=== PATIENT | male | born 1990 | race Two or more races ===

== ENCOUNTER 2024-05-14 10:49 | Inpatient (IN) | payer MEDICAID ==
[~2024-05-14] VITALS: Ht 177.8 cm; Wt 96.2 kg
[2024-05-14] MEDS ORDERED: ZOLPIDEM TARTRATE 10 MG TABLET PO PRN (11:15)
[2024-05-14] MEDS ORDERED: HALOPERIDOL 5 MG TABLET PO PRN (11:15)
[2024-05-14] MEDS ORDERED: OLAN10TA74 PO (15:23)
[2024-05-14] MEDS ORDERED: DIVA-112 PO (15:23)
[2024-05-14] MEDS ORDERED: PALI6TAB15 PO (15:23)
[2024-05-14] MEDS ORDERED: ARIP15TA27 PO (15:23)
[2024-05-14 15:46] LABS: COVID AG,FIA SOURCE NASAL SWAB
[2024-05-14 15:47] LABS: BASOPHILS % (AUTO) 0.3 % (0.0-2.0); EOSINOPHILS % (AUTO) 0 % (1.0-6.0); HEMOGLOBIN 15.2 g/dL (13.5-17.5); LYMPHOCYTES # (AUTO) 2.3 K/uL (1.0-4.8); LYMPHOCYTES % (AUTO) 28.6 % (22.0-44.0); MEAN CORPUSCULAR HEMOGLOBIN 30.4 pg (26.0-34.0); MEAN CORPUSCULAR HGB CONC 32.9 G/dL (31.0-37.0); MEAN CORPUSCULAR VOLUME 92 fL (80-100); MONOCYTES % (AUTO) 12.8 % (2.0-9.0); NEUTROPHILS # (AUTO) 4.6 K/uL (1.8-7.7); NEUTROPHILS % (AUTO) 58.3 % (40.0-70.0); PLATELET COUNT (AUTO) 305 K/uL (150-450); RED BLOOD CELL COUNT(AUTO) 4.99 MIL/uL (4.50-5.90); RED CELL DISTRIBUTION WIDTH 13.2 % (11.5-14.5)
[2024-05-14 15:57] LABS: ANION GAP 9 mmol/L (8-16); CALCIUM, TOTAL 8.9 mg/dL (8.8-10.5); CARBON DIOXIDE 29 mmol/L (22-29); CHLORIDE 100 mmol/L (98-107); CREATININE 1.31 mg/dL (0.60-1.30); GLOMERULAR FILTR. RATE CALC > 60 mL/min (>60); GLUCOSE,RANDOM 122 mg/dL (70-110); SODIUM SERUM 138 mmol/L (136-145); UREA NITROGEN, BLOOD 13 mg/dL (7-18)
[2024-05-14 16:01] LABS: ALCOHOL, BLOOD (SERUM) < 3 mg/dL (0-10)
[2024-05-14 16:02] LABS: SARS-COV2 (COVID) ANTIGEN,FIA Negative (Negative)
[2024-05-14] MEDS ORDERED: LORazepam 2 MG/ML VIAL ONE (16:24)
[2024-05-14] MEDS ORDERED: DiphenhydrAMINE HCL 50 MG/ML VIAL ONE (16:24)
[2024-05-14] MEDS ORDERED: HALOPERIDOL LACTATE 5 MG/ML VIAL ONE (16:24)
[2024-05-14] MEDS: DiphenhydrAMINE HCL 50 MG/ML VIAL IM ONE (16:32)
[2024-05-14] MEDS: HALOPERIDOL LACTATE 5 MG/ML VIAL IM ONE (16:32)
[2024-05-14] MEDS: LORazepam 2 MG/ML VIAL IM ONE (16:32)
[2024-05-14 21:30] VITALS: BP 138/73; PULSE 78; O2SAT 99
[2024-05-14 23:32] VITALS: RESP 18; TEMP 98
[2024-05-15 08:11] VITALS: RESP 17
[2024-05-15] MEDS ORDERED: ACETAMINOPHEN 325 MG TABLET PO PRN (09:30)
[2024-05-15] MEDS ORDERED: ALBUTEROL SULFATE HFA 90 MCG/PUFF 8 GM INHALER IH PRN (09:30)
[2024-05-15] MEDS ORDERED: CloNIDine HCL 0.1 MG TABLET PO PRN (09:30)
[2024-05-15] MEDS ORDERED: MAGNESIUM HYDROXIDE SUSPENSION 30 ML UDCUP PO PRN (09:30)
[2024-05-15] MEDS ORDERED: OMEPRAZOLE 20 MG CAPSULE PO PRN (09:30)
[2024-05-15] MEDS ORDERED: LOPERAMIDE HCL 2 MG CAPSULE PO PRN (09:30)
[2024-05-15] MEDS ORDERED: ONDANSETRON 4 MG TABLET PO PRN (09:30)
[2024-05-15] MEDS ORDERED: IBUPROFEN 600 MG TABLET PO PRN (09:30)
[2024-05-15] MEDS ORDERED: BENZOCAINE/MENTHOL LOZENGE PO PRN (09:30)
[2024-05-15] MEDS ORDERED: BACITRACIN 28 GM OINTMENT TP PRN (09:30)
[2024-05-15] MEDS ORDERED: PETROLATUM,WHITE 28 GM JELLY TP PRN (09:30)
[2024-05-15] MEDS ORDERED: DOCUSATE SODIUM 100 MG CAPSULE PO PRN (09:30)
[2024-05-15] MEDS ORDERED: MAG HYDROX/ALUMINUM HYD/SIMETH ES 30 ML SUSPENSION UDCUP PO PRN (09:30)
[2024-05-15] MEDS: LORazepam 2 MG/ML VIAL IM ONE (16:31)
[2024-05-15] MEDS: DiphenhydrAMINE HCL 50 MG/ML VIAL IM ONE (16:31)
[2024-05-15] MEDS: HALOPERIDOL LACTATE 5 MG/ML VIAL IM ONE (16:31)
[2024-05-15] MEDS: RisperiDONE 3 MG TABLET PO SCH (16:41)
[2024-05-15] MEDS: LITHIUM CARBONATE 300 MG CAPSULE PO SCH (16:41)
[2024-05-15] MEDS: DIVALPROEX SODIUM 500 MG DR TABLET PO SCH (16:41)
[2024-05-15 20:00] VITALS: RESP 16
[2024-05-16 08:17] VITALS: RESP 16
[2024-05-16 20:00] VITALS: RESP 16
[2024-05-16] MEDS: MELATONIN 5 MG TABLET PO SCH (21:00)
[2024-05-17 08:08] VITALS: RESP 17
[2024-05-17 21:00] VITALS: RESP 17; TEMP 98.1
[2024-05-18 08:06] VITALS: RESP 17
[2024-05-18] MEDS ORDERED: DiphenhydrAMINE HCL 50 MG/ML VIAL IM ONE (12:30)
[2024-05-18] MEDS ORDERED: HALOPERIDOL LACTATE 5 MG/ML VIAL IM ONE (12:30)
[2024-05-18] MEDS ORDERED: LORazepam 2 MG/ML VIAL IM ONE (12:30)
[2024-05-18] MEDS: LORazepam 2 MG TABLET PO PRN (17:01)
[2024-05-18] MEDS ORDERED: DiphenhydrAMINE HCL 50 MG/ML VIAL ONE (18:19)
[2024-05-18] MEDS ORDERED: LORazepam 2 MG/ML VIAL ONE (18:19)
[2024-05-18] MEDS ORDERED: HALOPERIDOL LACTATE 5 MG/ML VIAL ONE (18:20)
[2024-05-18] MEDS: HALOPERIDOL LACTATE 5 MG/ML VIAL IM ONE (19:45)
[2024-05-18] MEDS: DiphenhydrAMINE HCL 50 MG/ML VIAL IM ONE (19:45)
[2024-05-18] MEDS: LORazepam 2 MG/ML VIAL IM ONE (19:45)
[2024-05-18 23:46] VITALS: RESP 16
[2024-05-19 08:40] VITALS: RESP 16
[2024-05-19 20:00] VITALS: RESP 16
[2024-05-20 08:10] VITALS: RESP 16
[2024-05-21 20:07] VITALS: RESP 17
[2024-05-22 09:49] VITALS: RESP 18
[2024-05-22 20:14] VITALS: RESP 18
[2024-05-23] MEDS: DIVALPROEX SODIUM 500 MG DR TABLET PO ONE (20:22)
[2024-05-23] MEDS: RisperiDONE 3 MG TABLET PO ONE (20:22)
[2024-05-23] MEDS: LITHIUM CARBONATE 300 MG CAPSULE PO ONE (20:22)
[2024-05-23 21:22] VITALS: RESP 18
[2024-05-24] MEDS ORDERED: DiphenhydrAMINE HCL 50 MG/ML VIAL ONE (12:51)
[2024-05-24] MEDS ORDERED: LORazepam 2 MG/ML VIAL ONE (12:51)
[2024-05-24] MEDS: DiphenhydrAMINE HCL 50 MG/ML VIAL IM ONE (13:37)
[2024-05-24] MEDS: HALOPERIDOL LACTATE 5 MG/ML VIAL IM ONE (13:38)
[2024-05-24] MEDS: LORazepam 2 MG/ML VIAL IM ONE (13:38)
[2024-05-24] MEDS: HALOPERIDOL LACTATE 5 MG/ML VIAL IM PRN (23:21)
[2024-05-25 08:18] VITALS: RESP 18
[2024-05-26 00:31] VITALS: RESP 18
[2024-05-26 08:07] VITALS: RESP 18
[2024-05-27 08:06] VITALS: RESP 16
[2024-05-28 08:06] VITALS: RESP 18
[2024-05-28 20:21] VITALS: RESP 18
[2024-05-29] MEDS ORDERED: LORazepam 2 MG/ML VIAL ONE (01:39)
[2024-05-29] MEDS ORDERED: DiphenhydrAMINE HCL 50 MG/ML VIAL ONE (01:39)
[2024-05-29] MEDS: DiphenhydrAMINE HCL 50 MG/ML VIAL IM ONE (02:40)
[2024-05-29] MEDS: HALOPERIDOL LACTATE 5 MG/ML VIAL IM ONE (02:40)
[2024-05-29] MEDS: LORazepam 2 MG/ML VIAL IM ONE (02:40)
[2024-05-29] MEDS: RisperiDONE CONC 4 MG/4 ML SOLUTION ORAL.SYG PO SCH (08:49)
[2024-05-29] MEDS: LITHIUM CITRATE SOLUTION 8 MEQ/5 ML [8 MEQ = 300 MG] UDCUP PO SCH (08:49)
[2024-05-29] MEDS: VALPROIC ACID 250 MG/5 ML SOLUTION UDCUP PO SCH (08:50)
[2024-05-29 20:08] VITALS: RESP 18
[2024-05-31 20:29] VITALS: RESP 18
[2024-06-01 08:05] VITALS: RESP 17
[2024-06-02 08:27] VITALS: RESP 19
[2024-06-02 20:07] VITALS: RESP 18
[2024-06-03 08:31] VITALS: RESP 17
[2024-06-03] MEDS: QUEtiapine FUMARATE 200 MG TABLET PO SCH (16:23)
== END 2024-06-03 19:00 | disposition left against medical advice (07) | DRG 750 ==
LOC: EMS 10:49 → B3A 22:39
PROVIDERS: ADMIT Psychiatry & Neurology Psychiatry; ATTEND Psychiatry & Neurology Psychiatry
DX: F25.9 Schizoaffective disorder, unspecified (principal); E66.9 Obesity, unspecified; F41.9 Anxiety disorder, unspecified; G47.00 Insomnia, unspecified; F94.0 Selective mutism; K59.00 Constipation, unspecified; F31.9 Bipolar disorder, unspecified; Z20.822 Contact with and (suspected) exposure to COVID-19; F19.10 Other psychoactive substance abuse, uncomplicated; Z53.21 Procedure and treatment not carried out due to patient leaving prior to being seen by health care provider; K21.9 Gastro-esophageal reflux disease without esophagitis; Z68.30 Body mass index [BMI] 30.0-30.9, adult
CPT/HCPCS: 80048; 85025; 99285; G0480; J1200; J1630; J2060

== ENCOUNTER 2024-06-17 17:20 | Inpatient (IN) | payer MEDICAID ==
[~2024-06-17] VITALS: Ht 185.4 cm; Wt 104.5 kg
[~2024-06-17 17:20] MED LIST: ARIP15TA27 PO; DIVA-112 PO; OLAN10TA74 PO; PALI6TAB15 PO
[2024-06-17 21:42] VITALS: RESP 18
[2024-06-17] MEDS: HALOPERIDOL LACTATE 10 MG/5 ML SOLUTION UDCUP PO SCH (21:45)
[2024-06-18] MEDS ORDERED: PANTOPRAZOLE SODIUM 40 MG DR TABLET PO SCH (10:45)
[2024-06-18] MEDS: LEVOFLOXACIN 750 MG TABLET PO SCH (10:45)
[2024-06-18 10:51] VITALS: BP 147/88; PULSE 102; RESP 16; TEMP 97.3; O2SAT 96
[2024-06-18] MEDS ORDERED: MAGNESIUM HYDROXIDE SUSPENSION 30 ML UDCUP PO PRN (11:45)
[2024-06-18] MEDS ORDERED: DOCUSATE SODIUM 100 MG CAPSULE PO PRN (11:45)
[2024-06-18] MEDS ORDERED: OMEPRAZOLE 20 MG CAPSULE PO PRN (11:45)
[2024-06-18] MEDS ORDERED: ONDANSETRON 4 MG TABLET PO PRN (11:45)
[2024-06-18] MEDS ORDERED: ALBUTEROL SULFATE HFA 90 MCG/PUFF 8 GM INHALER IH PRN (11:45)
[2024-06-18] MEDS ORDERED: CloNIDine HCL 0.1 MG TABLET PO PRN (11:45)
[2024-06-18] MEDS ORDERED: PETROLATUM,WHITE 28 GM JELLY TP PRN (11:45)
[2024-06-18] MEDS ORDERED: BACITRACIN 28 GM OINTMENT TP PRN (11:45)
[2024-06-18] MEDS: SULFAMETHOX/TRIMETH DS 800-160 MG/TABLET PO SCH (12:58)
[2024-06-18 21:03] VITALS: RESP 18
[2024-06-19] MEDS: ZOLPIDEM TARTRATE 10 MG TABLET PO PRN (01:55)
[2024-06-19] MEDS: LOPERAMIDE HCL 2 MG CAPSULE PO PRN (08:12)
[2024-06-19] MEDS: LACTOBACILLUS ACIDOPHILUS/BULGARICUS GRANULES PACKET PO SCH (09:00)
[2024-06-19] MEDS: ETHYL ALCOHOL 62% ANTISEPTIC NASAL SANITIZER 0.6 ML AMPUL NASAL SCH (09:00)
[2024-06-19] MEDS: MULTIVITAMINS, THERAPEUTIC TABLET PO SCH (09:00)
[2024-06-19 09:14] VITALS: RESP 18
[2024-06-19] MEDS: ACETAMINOPHEN 325 MG TABLET PO PRN (12:29)
[2024-06-19 12:30] VITALS: RESP 18
[2024-06-19 20:45] VITALS: RESP 18
[2024-06-20 10:28] VITALS: RESP 19
[2024-06-20] MEDS: DiphenhydrAMINE HCL 50 MG/ML VIAL IM ONE (20:16)
[2024-06-20] MEDS: HALOPERIDOL LACTATE 5 MG/ML VIAL IM ONE (20:17)
[2024-06-20] MEDS: LORazepam 2 MG/ML VIAL IM ONE (20:17)
[2024-06-20 20:30] VITALS: RESP 18
[2024-06-21 08:16] VITALS: RESP 16; TEMP 96.9
[2024-06-21] MEDS: DiphenhydrAMINE HCL 25 MG CAPSULE PO ONE (18:40)
[2024-06-21] MEDS: LORazepam 2 MG TABLET PO PRN (18:40)
[2024-06-21] MEDS: DiphenhydrAMINE HCL 50 MG/ML VIAL IM ONE ×2 (18:44→19:10)
[2024-06-21] MEDS: LORazepam 2 MG/ML VIAL IM ONE ×2 (18:44→19:10)
[2024-06-21 21:54] VITALS: RESP 18
[2024-06-22 08:30] VITALS: RESP 17
[2024-06-22 20:11] VITALS: BP 122/85; PULSE 96; RESP 18; TEMP 97.4; O2SAT 97
[2024-06-24 08:45] VITALS: BP 117/56; PULSE 83; RESP 18; TEMP 98.6; O2SAT 95
[2024-06-24 19:55] VITALS: RESP 18
[2024-06-24 20:05] VITALS: RESP 18
[2024-06-25 10:50] VITALS: RESP 18
[2024-06-25 22:36] VITALS: RESP 18
[2024-06-26 08:42] VITALS: RESP 19
[2024-06-26 20:34] VITALS: BP 119/96; PULSE 78; RESP 18; TEMP 97.1; O2SAT 96
[2024-06-27 14:45] VITALS: RESP 18
[2024-06-27 20:41] VITALS: RESP 18
[2024-06-28 10:55] VITALS: RESP 19; TEMP 97
[2024-06-29 08:22] VITALS: BP 125/72; PULSE 82; RESP 20; TEMP 97.8; O2SAT 100
[2024-06-29] MEDS: BENZOCAINE/MENTHOL [CEPACOL] LOZENGE PO ONE (16:21)
[2024-06-30 11:20] VITALS: BP 133/104; PULSE 73; RESP 18; TEMP 97.6; O2SAT 98
[2024-06-30] MEDS ORDERED: HALOPERIDOL DECANOATE 100 MG/ML VIAL IM SCH (15:45)
[2024-06-30 20:27] VITALS: RESP 18
[2024-07-01 08:47] VITALS: RESP 18; TEMP 99.1
[2024-07-01] MEDS: HALOPERIDOL DECANOATE 100 MG/ML VIAL IM SCH (09:00)
[2024-07-01 21:18] VITALS: RESP 18
[2024-07-02] MEDS ORDERED: HALOPERIDOL LACTATE 5 MG/ML VIAL ONE (09:33)
[2024-07-02] MEDS: LORazepam 2 MG/ML VIAL IM ONE (10:12)
[2024-07-02] MEDS: DiphenhydrAMINE HCL 50 MG/ML VIAL IM ONE (10:15)
[2024-07-02] MEDS: HALOPERIDOL LACTATE 5 MG/ML VIAL IM ONE (10:15)
[2024-07-02 10:37] VITALS: RESP 17
[2024-07-02 20:02] VITALS: RESP 18
[2024-07-02] MEDS: HALOPERIDOL 5 MG TABLET PO PRN (23:01)
[2024-07-03 16:44] VITALS: RESP 18
[2024-07-03 20:16] VITALS: RESP 18
[2024-07-03] MEDS: HALOPERIDOL LACTATE 5 MG/ML VIAL IM ONE (22:56)
[2024-07-03] MEDS: DiphenhydrAMINE HCL 50 MG/ML VIAL IM ONE (23:00)
[2024-07-03] MEDS: LORazepam 2 MG/ML VIAL IM ONE (23:00)
[2024-07-04 08:49] VITALS: RESP 18
[2024-07-04 15:27] VITALS: RESP 18
[2024-07-04] MEDS: IBUPROFEN 600 MG TABLET PO PRN (15:27)
[2024-07-04 16:27] VITALS: RESP 18
[2024-07-04 20:05] VITALS: RESP 18
[2024-07-05] MEDS: MAG HYDROX/ALUMINUM HYD/SIMETH ES 30 ML SUSPENSION UDCUP PO PRN (05:56)
[2024-07-05 09:02] VITALS: RESP 18
[2024-07-05 20:03] VITALS: RESP 18
[2024-07-06 08:43] VITALS: BP 159/100; PULSE 102; RESP 18; TEMP 97.5; O2SAT 100
[2024-07-07 08:22] VITALS: BP 119/71; PULSE 104; RESP 18; TEMP 97.5; O2SAT 99
[2024-07-07 16:48] VITALS: BP 118/70; PULSE 101; RESP 17; TEMP 97.4; O2SAT 99
[2024-07-07 17:48] VITALS: BP 120/78; PULSE 98; RESP 18; TEMP 97; O2SAT 97
[2024-07-07 20:06] VITALS: RESP 18
[2024-07-08] MEDS: DiphenhydrAMINE HCL 50 MG/ML VIAL IM ONE (02:33)
[2024-07-08 08:26] VITALS: RESP 18
[2024-07-08 21:42] VITALS: RESP 18
[2024-07-09] MEDS: DiphenhydrAMINE HCL 50 MG/ML VIAL IM ONE (02:03)
[2024-07-09 10:18] VITALS: RESP 19
[2024-07-09 20:14] VITALS: RESP 18
[2024-07-09] MEDS: LORATADINE 10 MG TABLET PO SCH (20:55)
[2024-07-09] MEDS: OLANZapine 10 MG RAPDIS TABLET PO SCH (20:55)
[2024-07-09] MEDS: DiphenhydrAMINE HCL 25 MG CAPSULE PO PRN (21:20)
[2024-07-10 08:32] VITALS: RESP 17
[2024-07-10 20:02] VITALS: RESP 18
[2024-07-11 08:50] VITALS: RESP 17
[2024-07-11 20:11] VITALS: BP 120/97; PULSE 80; RESP 18; TEMP 98; O2SAT 97
[2024-07-12 08:35] VITALS: RESP 18
[2024-07-12 20:00] VITALS: BP 130/81; PULSE 110; RESP 20; TEMP 98; O2SAT 97
[2024-07-13 10:05] VITALS: RESP 17
[2024-07-13 21:04] VITALS: RESP 18
[2024-07-14 09:00] VITALS: RESP 17
[2024-07-14 21:23] VITALS: BP 134/92; PULSE 96; RESP 18; TEMP 98; O2SAT 97
[2024-07-15 09:43] VITALS: BP 120/74; PULSE 60; RESP 19; TEMP 98; O2SAT 97
[2024-07-15 20:20] VITALS: RESP 18
[2024-07-15 20:50] VITALS: BP 124/77; RESP 18
[2024-07-15 22:03] VITALS: RESP 18
[2024-07-16 08:05] VITALS: RESP 19
[2024-07-16 20:36] VITALS: BP 104/72; PULSE 77; RESP 18; TEMP 97.2; O2SAT 100
[2024-07-17 08:55] VITALS: RESP 17
[2024-07-17 12:38] LABS: BASOPHILS % (AUTO) 0.3 % (0.0-2.0); EOSINOPHILS % (AUTO) 0.1 % (1.0-6.0); HEMATOCRIT 45.5 % (41-53); HEMOGLOBIN 15.3 g/dL (13.5-17.5); LYMPHOCYTES # (AUTO) 2.6 K/uL (1.0-4.8); LYMPHOCYTES % (AUTO) 40.9 % (22.0-44.0); MEAN CORPUSCULAR HEMOGLOBIN 30.8 pg (26.0-34.0); MEAN CORPUSCULAR HGB CONC 33.5 G/dL (31.0-37.0); MEAN CORPUSCULAR VOLUME 92 fL (80-100); MONOCYTES # (AUTO) 0.5 K/uL (0.1-1.0); MONOCYTES % (AUTO) 8.5 % (2.0-9.0); NEUTROPHILS # (AUTO) 3.2 K/uL (1.8-7.7); NEUTROPHILS % (AUTO) 50.2 % (40.0-70.0); PLATELET COUNT (AUTO) 276 K/uL (150-450); RED BLOOD CELL COUNT(AUTO) 4.95 MIL/uL (4.50-5.90); RED CELL DISTRIBUTION WIDTH 14.2 % (11.5-14.5); WHITE BLOOD COUNT (AUTO) 6.3 K/uL (4.5-11.0)
[2024-07-17 13:01] LABS: ALANINE AMINOTRANSFERASE 210 U/L (12-78); ALBUMIN 3.6 g/dL (3.4-5.0); ALKALINE PHOSPHATASE 143 U/L (46-116); ANION GAP 5 mmol/L (8-16); ASPARTATE AMINOTRANSFERASE 66 U/L (15-37); BILIRUBIN,TOTAL 0.4 mg/dL (0.1-1.0); CALCIUM, TOTAL 9.1 mg/dL (8.8-10.5); CARBON DIOXIDE 30 mmol/L (22-29); CHLORIDE 101 mmol/L (98-107); CREATININE 0.92 mg/dL (0.60-1.30); GLOMERULAR FILTR. RATE CALC > 60 mL/min (>60); GLUCOSE,RANDOM 124 mg/dL (70-110); POTASSIUM 4.2 mmol/L (3.5-5.1); SODIUM SERUM 136 mmol/L (136-145); TOTAL PROTEIN, SERUM 7.2 g/dL (6.4-8.2); UREA NITROGEN, BLOOD 13 mg/dL (7-18)
[2024-07-17] MEDS: BENZOCAINE/MENTHOL [CEPACOL] LOZENGE PO PRN (15:18)
[2024-07-17 20:08] VITALS: BP 129/75; PULSE 120; RESP 18; TEMP 97.7; O2SAT 100
[2024-07-18 18:41] VITALS: RESP 18
[2024-07-19 10:05] VITALS: BP 123/67; PULSE 97; RESP 18; TEMP 97; O2SAT 99
[2024-07-19 20:10] VITALS: RESP 18
[2024-07-20 08:42] VITALS: RESP 18
[2024-07-20 21:23] VITALS: RESP 18; TEMP 97.8
[2024-07-21 09:00] VITALS: RESP 18
[2024-07-21 20:38] VITALS: RESP 18
[2024-07-22 11:00] VITALS: RESP 19
[2024-07-23 20:35] VITALS: BP 122/78; PULSE 102; RESP 18; TEMP 97.6; O2SAT 96
[2024-07-24 08:29] VITALS: RESP 17; TEMP 98
[2024-07-24 20:02] VITALS: BP 134/67; PULSE 103; RESP 16; TEMP 98.4; O2SAT 97
[2024-07-25 09:52] VITALS: RESP 18
[2024-07-25 21:56] VITALS: RESP 18
[2024-07-26 18:37] VITALS: BP 128/83; PULSE 111; RESP 18; TEMP 98.1; O2SAT 95
[2024-07-27 08:57] VITALS: RESP 19; TEMP 97.8
[2024-07-27 20:31] VITALS: TEMP 97
[2024-07-28 20:09] VITALS: BP 134/100; PULSE 90; RESP 18; TEMP 97.9; O2SAT 95
[2024-07-29 09:00] VITALS: RESP 18
[2024-07-29 20:19] VITALS: RESP 18
[2024-07-30 11:11] VITALS: BP 128/89; PULSE 89; RESP 18; TEMP 98; O2SAT 96
[2024-07-30 20:34] VITALS: BP 131/77; PULSE 107; RESP 18; TEMP 98; O2SAT 99
[2024-07-31] MEDS: INFLUENZA VIRUS VACCINE TVS (6MO+) 2024-25/PF 45 MCG/0.5 ML SYRINGE IM. ONE (11:30)
[2024-07-31 18:26] VITALS: BP 125/70; PULSE 85; RESP 18; TEMP 97.6; O2SAT 99
[2024-07-31 20:26] VITALS: BP 145/98; PULSE 104; RESP 18; TEMP 98.3; O2SAT 95
[2024-08-01 10:16] VITALS: RESP 18
[2024-08-01 20:12] VITALS: RESP 18
[2024-08-02 10:23] VITALS: RESP 18
[2024-08-02 21:46] VITALS: RESP 18
[2024-08-03 09:55] VITALS: RESP 16
[2024-08-03 21:09] VITALS: BP 114/71; PULSE 88; RESP 18; TEMP 98.7; O2SAT 96
[2024-08-04 20:06] VITALS: BP 116/85; PULSE 90; RESP 18; TEMP 98.1; O2SAT 96
[2024-08-05 08:15] VITALS: RESP 19; TEMP 97.6
[2024-08-05 21:30] VITALS: BP 130/78; PULSE 98; RESP 18; TEMP 97.5; O2SAT 99
[2024-08-06 09:55] VITALS: RESP 18
[2024-08-06 20:02] VITALS: BP 121/78; PULSE 109; RESP 16; TEMP 99.4; O2SAT 98
[2024-08-07 11:08] VITALS: RESP 18
[2024-08-07 20:00] VITALS: BP 146/88; PULSE 81; RESP 19; TEMP 97.6
[2024-08-08 10:21] VITALS: RESP 18
[2024-08-08 20:34] VITALS: BP 119/75; PULSE 115; RESP 18; TEMP 97.8; O2SAT 95
[2024-08-09 10:26] VITALS: RESP 18
[2024-08-09 20:45] VITALS: BP 127/79; PULSE 112; RESP 18; O2SAT 97
[2024-08-10 09:32] VITALS: RESP 18
[2024-08-10 21:07] VITALS: BP 131/80; PULSE 105; RESP 18; TEMP 97.8; O2SAT 96
[2024-08-11 09:56] VITALS: RESP 18
[2024-08-11 20:43] VITALS: BP 121/82; PULSE 108; RESP 18; TEMP 97.8; O2SAT 98
[2024-08-12 09:07] VITALS: RESP 18
[2024-08-12 20:29] VITALS: BP 134/90; PULSE 88; RESP 18; TEMP 97.7; O2SAT 96
[2024-08-13 08:43] VITALS: RESP 20
[2024-08-13 20:00] VITALS: BP 135/101; PULSE 110; RESP 18; TEMP 98; O2SAT 97
[2024-08-14 10:31] VITALS: RESP 18
[2024-08-14 20:57] VITALS: BP 132/75; PULSE 82; RESP 18; TEMP 98.2; O2SAT 97
[2024-08-15 11:56] VITALS: RESP 18
[2024-08-15 20:54] VITALS: RESP 18
[2024-08-16 08:45] VITALS: RESP 18
[2024-08-16 20:56] VITALS: RESP 19; TEMP 97.6
[2024-08-17 15:29] VITALS: BP 119/77; PULSE 108; RESP 18; TEMP 97.3; O2SAT 97
[2024-08-17 20:01] VITALS: BP 134/85; PULSE 96; RESP 18; TEMP 97.5; O2SAT 96
[2024-08-18 19:01] VITALS: BP 132/72; PULSE 95; RESP 18; TEMP 97.8; O2SAT 97
[2024-08-18 21:03] VITALS: BP 145/95; PULSE 96; RESP 19; TEMP 97.9; O2SAT 96
[2024-08-19 11:17] VITALS: RESP 17; TEMP 96.9
[2024-08-19 20:42] VITALS: BP 135/80; PULSE 92; RESP 18; TEMP 98.1; O2SAT 95
[2024-08-20 21:12] VITALS: RESP 18
[2024-08-21 12:09] VITALS: RESP 18
[2024-08-21 20:31] VITALS: BP 131/79; PULSE 96; RESP 19; TEMP 97.7; O2SAT 97
[2024-08-22 14:32] VITALS: RESP 18
[2024-08-22 20:29] VITALS: RESP 19
[2024-08-23 12:48] VITALS: RESP 18
[2024-08-23 22:03] VITALS: RESP 18
[2024-08-24 08:27] VITALS: RESP 18
[2024-08-24 20:01] VITALS: BP 123/87; PULSE 105; RESP 18; TEMP 97.4; O2SAT 96
[2024-08-25 09:07] VITALS: RESP 18
[2024-08-25 20:00] VITALS: BP 128/90; PULSE 102; RESP 18; TEMP 97.6; O2SAT 97
[2024-08-26 08:00] VITALS: BP 117/72; PULSE 92; RESP 17; TEMP 97.1; O2SAT 97
[2024-08-26 20:19] VITALS: BP 124/82; PULSE 72; RESP 18; TEMP 97.3; O2SAT 96
[2024-08-27 14:33] VITALS: RESP 17
[2024-08-27 20:05] VITALS: RESP 18; RESP 19; TEMP 97.6
[2024-08-28 21:07] VITALS: RESP 18
[2024-08-29 08:26] VITALS: RESP 18
[2024-08-29 20:21] VITALS: BP 131/85; PULSE 100; RESP 18; TEMP 98.2
[2024-08-30 14:17] VITALS: RESP 18
[2024-08-30 21:19] VITALS: BP 137/79; PULSE 99; RESP 18; TEMP 97.8
[2024-08-31 13:02] VITALS: RESP 17
[2024-08-31 20:02] VITALS: BP 115/77; PULSE 100; RESP 18; TEMP 97.9; O2SAT 95
[2024-09-01 11:09] VITALS: BP 133/94; PULSE 86; RESP 16; TEMP 97.9; O2SAT 96
[2024-09-01 20:00] VITALS: BP 149/79; PULSE 98; RESP 18; TEMP 96.8; O2SAT 98
[2024-09-02 08:09] VITALS: BP 118/68; PULSE 106; RESP 17; TEMP 98.1; O2SAT 95
[2024-09-02 20:04] VITALS: BP 158/87; PULSE 105; RESP 18; TEMP 97.8; O2SAT 98
[2024-09-03 08:28] VITALS: BP 130/85; PULSE 96; RESP 16; TEMP 97.8; O2SAT 96
[2024-09-03 20:03] VITALS: BP 129/91; PULSE 96; RESP 20; TEMP 97.7; O2SAT 96
[2024-09-03] MEDS: PALIPERIDONE 3 MG ER TABLET PO SCH (20:09)
[2024-09-04 08:38] VITALS: BP 118/85; PULSE 96; RESP 18; TEMP 97.7; O2SAT 99
[2024-09-04 23:03] VITALS: BP 137/98; PULSE 86; RESP 18; TEMP 97.9; O2SAT 97
[2024-09-05 08:59] VITALS: BP 130/80; PULSE 96; RESP 18; TEMP 98; O2SAT 99
[2024-09-05 21:55] VITALS: BP 140/87; PULSE 99; RESP 18; TEMP 97.1; O2SAT 100
[2024-09-05 22:02] VITALS: BP 140/87; PULSE 100; RESP 18; TEMP 97.1; O2SAT 100
[2024-09-06] MEDS: PALIPERIDONE PALMITATE 234 MG/1.5 ML SYRINGE IM SCH (11:36)
[2024-09-06 15:25] VITALS: BP 136/88; PULSE 88; RESP 17; TEMP 97.8; O2SAT 98
[2024-09-06 20:00] VITALS: BP 125/76; PULSE 93; RESP 19; TEMP 98; O2SAT 98
[2024-09-07 11:34] VITALS: BP 129/83; PULSE 96; RESP 18; TEMP 98.2; O2SAT 99
[2024-09-07 20:28] VITALS: BP 113/85; PULSE 96; RESP 18; TEMP 97.3; O2SAT 96
[2024-09-08 10:47] VITALS: BP 130/83; PULSE 87; RESP 17; TEMP 97.9; O2SAT 96
[2024-09-08 20:29] VITALS: BP 127/80; PULSE 112; RESP 18; TEMP 97.6; O2SAT 96
[2024-09-08] MEDS: OLANZapine 10 MG RAPDIS TABLET PO SCH (21:00)
[2024-09-09 21:20] VITALS: BP 126/76; PULSE 95; RESP 18; TEMP 98.1; O2SAT 99
[2024-09-10 18:13] VITALS: BP 122/78; PULSE 95; RESP 18; TEMP 97.7; O2SAT 96
[2024-09-10 20:53] VITALS: BP 121/71; PULSE 92; RESP 18; TEMP 98.8; O2SAT 96
[2024-09-11 09:52] VITALS: RESP 18
[2024-09-11 23:20] VITALS: BP 124/73; PULSE 89; RESP 18; TEMP 97.5; O2SAT 95
[2024-09-12 16:37] VITALS: RESP 18; TEMP 98; O2SAT 99
[2024-09-12 21:49] VITALS: BP 132/82; PULSE 95; RESP 18; TEMP 97.3
[2024-09-13 15:03] VITALS: RESP 16
[2024-09-13 21:10] VITALS: BP 124/76; PULSE 89; RESP 18; TEMP 97.8; O2SAT 95
[2024-09-14 10:00] VITALS: BP 125/86; PULSE 86; RESP 16; TEMP 97.2; O2SAT 97
[2024-09-14 20:58] VITALS: BP 121/79; PULSE 97; RESP 18; TEMP 97.8; O2SAT 99
[2024-09-15 10:17] VITALS: RESP 18
[2024-09-15 21:13] VITALS: BP 126/73; PULSE 76; RESP 18; TEMP 98.2
[2024-09-16 09:00] VITALS: RESP 18
[2024-09-16 20:27] VITALS: BP 120/72; PULSE 90; RESP 18; TEMP 98.2; O2SAT 97
[2024-09-17 08:16] VITALS: RESP 18
[2024-09-17 21:31] VITALS: BP 117/64; PULSE 80; RESP 18; TEMP 98; O2SAT 95
[2024-09-18 09:00] VITALS: BP 110/59; PULSE 64; RESP 18; TEMP 97.6; O2SAT 97
[2024-09-18 20:21] VITALS: BP 113/72; PULSE 68; RESP 18; TEMP 97.1; O2SAT 98
[2024-09-19 11:09] VITALS: BP 125/78; PULSE 95; RESP 18; TEMP 98.2; O2SAT 98
[2024-09-19 20:31] VITALS: BP 122/72; PULSE 83; RESP 18; TEMP 98.7; O2SAT 98
[2024-09-20 18:43] VITALS: BP 133/85; PULSE 81; RESP 18; TEMP 98; O2SAT 98
[2024-09-20 21:41] VITALS: BP 125/73; PULSE 81; RESP 18; TEMP 98.8; O2SAT 95
[2024-09-21 09:04] VITALS: BP 111/63; PULSE 86; RESP 16; TEMP 96.7; O2SAT 98
[2024-09-21 22:19] VITALS: BP 128/78; PULSE 88; RESP 18; TEMP 98; O2SAT 97
[2024-09-22 09:01] VITALS: RESP 18
[2024-09-22 21:27] VITALS: BP 119/72; PULSE 70; RESP 18; TEMP 98.1; O2SAT 96
[2024-09-23 10:20] VITALS: RESP 16
[2024-09-23 21:37] VITALS: BP 109/69; PULSE 81; RESP 18; TEMP 98.9; O2SAT 95
[2024-09-24 09:21] VITALS: BP 120/65; PULSE 79; RESP 18; TEMP 97.9; O2SAT 97
[2024-09-24 20:00] VITALS: BP 110/65; PULSE 77; RESP 18; TEMP 98.8; O2SAT 95
[2024-09-25 08:00] VITALS: RESP 17
[2024-09-25 22:04] VITALS: BP 121/78; PULSE 85; RESP 18; TEMP 98; O2SAT 98
[2024-09-26 21:46] VITALS: BP 108/61; PULSE 75; RESP 18; TEMP 97.7; O2SAT 95
[2024-09-27 10:33] VITALS: RESP 17
[2024-09-27 22:28] VITALS: BP 147/95; PULSE 91; RESP 18; TEMP 97; O2SAT 95
[2024-09-28 09:39] VITALS: BP 116/73; PULSE 59; RESP 16; TEMP 96.5; O2SAT 98
[2024-09-28 21:48] VITALS: BP 140/83; PULSE 77; RESP 18; TEMP 97.5; O2SAT 95
[2024-09-29 10:48] VITALS: RESP 18
[2024-09-29 21:48] VITALS: BP 123/76; PULSE 80; RESP 18; TEMP 97.5; O2SAT 96
[2024-09-30 21:45] VITALS: BP 113/69; PULSE 82; RESP 18; TEMP 98.2; O2SAT 98
[2024-10-01 20:15] VITALS: BP 135/78; PULSE 86; RESP 16; TEMP 97.4; O2SAT 98
[2024-10-02 08:00] VITALS: BP 126/74; PULSE 81; RESP 18; TEMP 97; O2SAT 95
[2024-10-02 21:32] VITALS: BP 133/75; PULSE 87; RESP 19; TEMP 97.4; O2SAT 95
[2024-10-03 13:49] VITALS: BP 118/79; PULSE 81; RESP 18; TEMP 98.8; O2SAT 97
[2024-10-03 21:30] VITALS: BP 118/74; PULSE 84; RESP 18; TEMP 98.9; O2SAT 97
[2024-10-04 10:24] VITALS: BP 140/97; PULSE 65; RESP 19; TEMP 97.6; O2SAT 96
[2024-10-04 15:14] VITALS: BP 112/62; PULSE 100; RESP 20; TEMP 98.2; O2SAT 98
[2024-10-04 20:00] VITALS: BP 145/80; PULSE 95; RESP 18; TEMP 97; O2SAT 97
[2024-10-04 23:01] VITALS: BP 145/96; PULSE 99; RESP 18; TEMP 97; O2SAT 100
[2024-10-05 09:43] VITALS: BP 126/61; PULSE 81; RESP 18; TEMP 98.6; O2SAT 97
[2024-10-05 22:11] VITALS: BP 122/83; PULSE 78; RESP 18; TEMP 97.4; O2SAT 96
[2024-10-06 09:30] VITALS: BP 138/76; PULSE 80; RESP 18; TEMP 97.4
[2024-10-06 23:43] VITALS: RESP 18
[2024-10-07 11:12] VITALS: BP 158/92; PULSE 63; RESP 19; TEMP 97.5; O2SAT 99
[2024-10-07 21:39] VITALS: BP 139/84; PULSE 106; RESP 18; TEMP 97.3; O2SAT 96
[2024-10-08 09:00] VITALS: BP 134/79; PULSE 86; RESP 17; TEMP 97.6; O2SAT 98
[2024-10-08 20:42] VITALS: BP 141/83; PULSE 97; RESP 18; TEMP 98.6; O2SAT 98
[2024-10-09 08:42] VITALS: BP 108/64; PULSE 72; RESP 18; TEMP 97.6; O2SAT 98
[2024-10-09 21:50] VITALS: BP 121/79; PULSE 73; RESP 18; TEMP 97.5; O2SAT 98
[2024-10-10 08:00] VITALS: BP 153/97; PULSE 93; RESP 18; TEMP 98.4; O2SAT 96
[2024-10-10 20:00] VITALS: BP 134/80; PULSE 95; RESP 18; TEMP 97; O2SAT 97
[2024-10-11 08:00] VITALS: BP 134/94; PULSE 91; RESP 18; TEMP 97.5; O2SAT 97
[2024-10-11 21:56] VITALS: BP 118/84; PULSE 91; RESP 18; TEMP 98; O2SAT 98
[2024-10-12 09:49] VITALS: BP 117/73; PULSE 104; RESP 18; TEMP 97.6; O2SAT 95
[2024-10-12 20:28] VITALS: BP 130/61; PULSE 71; RESP 16; TEMP 97.8; O2SAT 99
[2024-10-13 08:30] VITALS: RESP 18
[2024-10-13 21:20] VITALS: BP 135/79; PULSE 78; RESP 19; TEMP 97.8; O2SAT 100
[2024-10-14 09:58] VITALS: BP 139/61; PULSE 102; RESP 18; TEMP 97.1; O2SAT 99
[2024-10-14] MEDS: PALIPERIDONE 6 MG ER TABLET PO SCH (20:55)
[2024-10-14 22:02] VITALS: BP 140/99; PULSE 77; RESP 18; TEMP 98.5; O2SAT 96
[2024-10-15 08:43] VITALS: BP 123/77; PULSE 100; RESP 17; O2SAT 95
[2024-10-15] MEDS: TUBERCULIN, PURIFIED PROTEIN DERIVATIVE 5 TU/0.1 ML SYRINGE ID ONE ×2 (16:25→18:19)
[2024-10-15 21:40] VITALS: BP 136/86; PULSE 109; RESP 18; O2SAT 98
[2024-10-16 08:23] VITALS: BP 148/102; PULSE 114; RESP 17; O2SAT 97
[2024-10-16 21:00] VITALS: BP 150/100; PULSE 18; RESP 20; TEMP 97.7; O2SAT 97
[2024-10-17 20:28] VITALS: BP 123/92; PULSE 18; RESP 18; TEMP 98.4; O2SAT 97
[2024-10-17 20:29] VITALS: BP 123/92; PULSE 110; RESP 18; TEMP 98.4; O2SAT 97
[2024-10-17 23:30] VITALS: BP 126/88; PULSE 88; RESP 18; TEMP 98.4; O2SAT 98
[2024-10-18 09:33] VITALS: BP 125/81; PULSE 91; RESP 18; TEMP 98; O2SAT 96
[2024-10-18 09:44] VITALS: BP 125/81; PULSE 91; RESP 18; TEMP 98; O2SAT 96
[2024-10-18 23:10] VITALS: RESP 18
[2024-10-19 08:45] VITALS: BP 123/77; PULSE 89; TEMP 97; O2SAT 97
[2024-10-19 21:12] VITALS: RESP 18
[2024-10-20 10:10] VITALS: RESP 18
[2024-10-20 22:25] VITALS: RESP 18
[2024-10-21] MEDS ORDERED: PALI234D IM (08:05)
[2024-10-21] MEDS ORDERED: PALI6TAB15 PO (08:05)
[2024-10-21] MEDS ORDERED: MULT-14 PO (08:05)
[2024-10-21 09:52] VITALS: BP 139/83; PULSE 81; RESP 18; TEMP 98.8; O2SAT 99
[2024-10-21 11:15] LABS: COVID AG,FIA SOURCE NASAL SWAB
[2024-10-21 16:24] LABS: SARS-COV2 (COVID) ANTIGEN,FIA Negative (Negative)
== END 2024-10-21 14:45 | DRG 750 ==
LOC: 3EC 21:30 → 3EI 09-04 15:50
PROVIDERS: ADMIT Psychiatry & Neurology Psychiatry; ATTEND Psychiatry & Neurology Psychiatry
PROC: GZ52ZZZ Individual Psychotherapy, Cognitive (ICD-10-PCS; principal; 2024-06-19)
PROC: GZHZZZZ Group Psychotherapy (ICD-10-PCS; 2024-06-19)
DX: F25.0 Schizoaffective disorder, bipolar type (principal); F10.10 Alcohol abuse, uncomplicated; F19.10 Other psychoactive substance abuse, uncomplicated; F41.9 Anxiety disorder, unspecified; G47.00 Insomnia, unspecified; K59.00 Constipation, unspecified; Z20.822 Contact with and (suspected) exposure to COVID-19; Y90.9 Presence of alcohol in blood, level not specified; F94.0 Selective mutism; K21.9 Gastro-esophageal reflux disease without esophagitis; L03.818 Cellulitis of other sites; Z91.199 Patient's noncompliance with other medical treatment and regimen due to unspecified reason; Z72.0 Tobacco use; Z88.8 Allergy status to other drugs, medicaments and biological substances
CPT/HCPCS: 71045; 80053; 83036; 85025; 87081; J1200; J1630; J1631; J2060; 36415-L1; 36415-TC

== ENCOUNTER 2024-10-31 13:53 | Inpatient (IN) | payer MEDICAID ==
[~2024-10-31] VITALS: Ht 185.4 cm; Wt 104.8 kg
[~2024-10-31 13:53] MED LIST changes: -ARIP15TA27 PO; -DIVA-112 PO; +MULT-14 PO; -OLAN10TA74 PO; +PALI234D IM
[2024-10-31 14:33] LABS: BASOPHILS % (AUTO) 0.2 % (0.0-2.0); EOSINOPHILS % (AUTO) 0 % (1.0-6.0); HEMATOCRIT 44.6 % (41-53); HEMOGLOBIN 15.4 g/dL (13.5-17.5); LYMPHOCYTES # (AUTO) 2.5 K/uL (1.0-4.8); LYMPHOCYTES % (AUTO) 32.2 % (22.0-44.0); MEAN CORPUSCULAR HEMOGLOBIN 30.7 pg (26.0-34.0); MEAN CORPUSCULAR HGB CONC 34.6 G/dL (31.0-37.0); MEAN CORPUSCULAR VOLUME 89 fL (80-100); MONOCYTES # (AUTO) 0.5 K/uL (0.1-1.0); MONOCYTES % (AUTO) 6.1 % (2.0-9.0); NEUTROPHILS # (AUTO) 4.7 K/uL (1.8-7.7); NEUTROPHILS % (AUTO) 61.5 % (40.0-70.0); PLATELET COUNT (AUTO) 317 K/uL (150-450); RED BLOOD CELL COUNT(AUTO) 5.03 MIL/uL (4.50-5.90); RED CELL DISTRIBUTION WIDTH 12.8 % (11.5-14.5); WHITE BLOOD COUNT (AUTO) 7.7 K/uL (4.5-11.0)
[2024-10-31 14:44] LABS: ANION GAP 7 mmol/L (8-16); CALCIUM, TOTAL 8.8 mg/dL (8.8-10.5); CARBON DIOXIDE 27 mmol/L (22-29); CHLORIDE 102 mmol/L (98-107); CREATININE 0.89 mg/dL (0.60-1.30); GLOMERULAR FILTR. RATE CALC > 60 mL/min (>60); GLUCOSE,RANDOM 130 mg/dL (70-110); POTASSIUM 3.8 mmol/L (3.5-5.1); SODIUM SERUM 136 mmol/L (136-145); UREA NITROGEN, BLOOD 12 mg/dL (7-18)
[2024-10-31 14:47] LABS: ALCOHOL, BLOOD (SERUM) < 3 mg/dL (0-10)
[2024-10-31] MEDS ORDERED: OLANZapine 5 MG RAPDIS TABLET PO PRN (15:00)
[2024-10-31 15:41] LABS: COVID AG,FIA SOURCE NASAL SWAB
[2024-10-31 15:59] LABS: SARS-COV2 (COVID) ANTIGEN,FIA Negative (Negative)
[2024-10-31 16:45] VITALS: O2SAT 98
[2024-10-31 17:12] LABS: ALCOHOL, URINE DRUG SCREEN NEGATIVE (NEGATIVE); AMPHET/METH SCREEN,URINE NEGATIVE (NEGATIVE); BARBITURATE SCREEN, URINE NEGATIVE (NEGATIVE); BENZODIAZEPINES SCREEN,URINE NEGATIVE (NEGATIVE); CANNABINOID SCREEN,URINE NEGATIVE (NEGATIVE); COCAINE SCREEN,URINE NEGATIVE (NEGATIVE); METHADONE SCREEN, URINE NEGATIVE (NEGATIVE); OPIATE SCREEN,URINE NEGATIVE (NEGATIVE); PHENCYCLIDINE SCREEN,URINE NEGATIVE (NEGATIVE)
[2024-10-31 17:40] LABS: APPEARANCE,URINE CLEAR (CLEAR); COLOR,URINE COLORLESS (YELLOW); GLUCOSE, URINE (UA) NEGATIVE (NEGATIVE); PROTEIN,URINE NEGATIVE (NEGATIVE); SPECIFIC GRAVITIY, URINE 1.003 (1.003-1.030)
[2024-10-31 17:41] LABS: BILIRUBIN,URINE NEGATIVE (NEGATIVE); KETONES,URINE NEGATIVE (NEGATIVE); LEUKOCYTE ESTERASE ,URINE NEGATIVE (NEGATIVE); NITRATE,URINE NEGATIVE (NEGATIVE); OCCULT BLOOD,URINE NEGATIVE (NEGATIVE); UROBILINOGEN,URINE <=1.0 mg/dL (<=1.0)
[2024-10-31 21:34] VITALS: BP 157/91; PULSE 92; RESP 19; TEMP 97.7; O2SAT 96
[2024-11-01 08:06] VITALS: BP 154/78; PULSE 60; RESP 18; TEMP 96; O2SAT 100
[2024-11-01] MEDS: PALIPERIDONE PALMITATE 234 MG/1.5 ML SYRINGE IM SCH (17:25)
[2024-11-01 20:21] VITALS: RESP 18
[2024-11-01] MEDS ORDERED: ONDANSETRON 4 MG TABLET PO PRN (21:00)
[2024-11-01] MEDS ORDERED: IBUPROFEN 600 MG TABLET PO PRN (21:00)
[2024-11-01] MEDS ORDERED: ACETAMINOPHEN 325 MG TABLET PO PRN (21:00)
[2024-11-01] MEDS ORDERED: OMEPRAZOLE 20 MG CAPSULE PO PRN (21:00)
[2024-11-01] MEDS ORDERED: LOPERAMIDE HCL 2 MG CAPSULE PO PRN (21:00)
[2024-11-01] MEDS ORDERED: DOCUSATE SODIUM 100 MG CAPSULE PO PRN (21:00)
[2024-11-01] MEDS ORDERED: MAG HYDROX/ALUMINUM HYD/SIMETH ES 30 ML SUSPENSION UDCUP PO PRN (21:00)
[2024-11-01] MEDS ORDERED: MAGNESIUM HYDROXIDE SUSPENSION 30 ML UDCUP PO PRN (21:00)
[2024-11-01] MEDS ORDERED: ALBUTEROL SULFATE HFA 90 MCG/PUFF 8 GM INHALER IH PRN (21:00)
[2024-11-01] MEDS ORDERED: PETROLATUM,WHITE 28 GM JELLY TP PRN (21:00)
[2024-11-01] MEDS ORDERED: BACITRACIN 28 GM OINTMENT TP PRN (21:00)
[2024-11-01] MEDS ORDERED: CloNIDine HCL 0.1 MG TABLET PO PRN (21:00)
[2024-11-01] MEDS: PALIPERIDONE 6 MG ER TABLET PO SCH (21:14)
[2024-11-02 08:06] VITALS: RESP 18
[2024-11-03 08:36] VITALS: RESP 18
[2024-11-03] MEDS: ZOLPIDEM TARTRATE 10 MG TABLET PO PRN (21:44)
[2024-11-04 10:18] VITALS: RESP 16
[2024-11-04 20:31] VITALS: RESP 18
[2024-11-04] MEDS: TraZODone HCL 50 MG TABLET PO SCH (20:46)
[2024-11-05 08:21] VITALS: RESP 18
[2024-11-05] MEDS: LORazepam 2 MG TABLET PO PRN (17:47)
[2024-11-05 20:31] VITALS: BP 133/91; PULSE 100; RESP 18; TEMP 97; O2SAT 96
[2024-11-06 08:07] VITALS: RESP 18
[2024-11-06 20:02] VITALS: BP 132/101; PULSE 100; RESP 18; TEMP 98.3; O2SAT 95
[2024-11-07 08:21] VITALS: RESP 18
[2024-11-07 20:01] VITALS: BP 111/62; PULSE 92; RESP 16; TEMP 98; O2SAT 96
[2024-11-08] MEDS: BENZOCAINE/MENTHOL [CEPACOL] LOZENGE PO PRN (10:53)
[2024-11-08 20:15] VITALS: BP 113/77; PULSE 83; RESP 16; TEMP 96; O2SAT 96
[2024-11-09 08:07] VITALS: RESP 16
[2024-11-09 21:00] VITALS: BP 116/68; PULSE 81; RESP 16; TEMP 99.2; O2SAT 96
[2024-11-10 08:03] VITALS: RESP 16
[2024-11-12 09:02] VITALS: RESP 18
[2024-11-12 20:13] VITALS: BP 104/54; PULSE 61; RESP 18; TEMP 98.3; O2SAT 96
[2024-11-13] MEDS ORDERED: TRAZ-184 PO (08:50)
[2024-11-13 10:54] VITALS: BP 120/79; PULSE 80; RESP 14; TEMP 98; O2SAT 96
== END 2024-11-13 11:40 | DRG 750 ==
LOC: EMS 13:58 → B3A 20:58
PROVIDERS: ADMIT Psychiatry & Neurology Psychiatry; ATTEND Psychiatry & Neurology Psychiatry
DX: F20.0 Paranoid schizophrenia (principal); Z91.148 Patient's other noncompliance with medication regimen for other reason; F19.10 Other psychoactive substance abuse, uncomplicated; F31.9 Bipolar disorder, unspecified; F41.9 Anxiety disorder, unspecified; G47.00 Insomnia, unspecified; K59.00 Constipation, unspecified; Z20.822 Contact with and (suspected) exposure to COVID-19; K21.9 Gastro-esophageal reflux disease without esophagitis; Z72.0 Tobacco use
CPT/HCPCS: 80048; 80307; 81003; 83036; 85025; 87081; G0480

== ENCOUNTER 2025-01-05 04:23 | Emergency (ER) | payer BC, MEDICAID ==
[~2025-01-05] VITALS: Ht 182.9 cm; Wt 75.0 kg
[~2025-01-05 04:23] MED LIST changes: -MULT-14 PO; +TRAZ-184 PO
[2025-01-05 04:31] VITALS: BP 129/69; PULSE 98; RESP 18; TEMP 98.2; O2SAT 96
[2025-01-05 05:11] LABS: COVID AG,FIA SOURCE NASAL SWAB
[2025-01-05 05:13] LABS: BASOPHILS % (AUTO) 0.5 % (0.0-2.0); EOSINOPHILS % (AUTO) 0 % (1.0-6.0); HEMATOCRIT 38.5 % (41-53); HEMOGLOBIN 13.1 g/dL (13.5-17.5); LYMPHOCYTES # (AUTO) 2.4 K/uL (1.0-4.8); MEAN CORPUSCULAR HEMOGLOBIN 29.4 pg (26.0-34.0); MEAN CORPUSCULAR HGB CONC 33.9 G/dL (31.0-37.0); MEAN CORPUSCULAR VOLUME 87 fL (80-100); MONOCYTES # (AUTO) 0.7 K/uL (0.1-1.0); MONOCYTES % (AUTO) 8.9 % (2.0-9.0); NEUTROPHILS # (AUTO) 4.8 K/uL (1.8-7.7); NEUTROPHILS % (AUTO) 60.6 % (40.0-70.0); PLATELET COUNT (AUTO) 470 K/uL (150-450); RED BLOOD CELL COUNT(AUTO) 4.44 MIL/uL (4.50-5.90); RED CELL DISTRIBUTION WIDTH 14.1 % (11.5-14.5); WHITE BLOOD COUNT (AUTO) 7.9 K/uL (4.5-11.0)
[2025-01-05 05:16] LABS: APPEARANCE,URINE CLEAR (CLEAR); BILIRUBIN,URINE NEGATIVE (NEGATIVE); COLOR,URINE LIGHT YELLOW (YELLOW); GLUCOSE, URINE (UA) NEGATIVE (NEGATIVE); KETONES,URINE TRACE mg/dL (NEGATIVE); LEUKOCYTE ESTERASE ,URINE NEGATIVE (NEGATIVE); NITRATE,URINE NEGATIVE (NEGATIVE); OCCULT BLOOD,URINE NEGATIVE (NEGATIVE); PH,URINE 6.5 (5.0-8.0); PH,URINE DRUG SCREEN 6.5 (5.0-8.0); PROTEIN,URINE NEGATIVE (NEGATIVE); SPECIFIC GRAVITIY, URINE 1.019 (1.003-1.030); UROBILINOGEN,URINE <=1.0 mg/dL (<=1.0)
[2025-01-05 05:22] LABS: ANION GAP 4 mmol/L (8-16); CARBON DIOXIDE 33 mmol/L (22-29); CHLORIDE 99 mmol/L (98-107); CREATININE 1.16 mg/dL (0.60-1.30); GLOMERULAR FILTR. RATE CALC > 60 mL/min (>60); GLUCOSE,RANDOM 125 mg/dL (70-110); POTASSIUM 4.4 mmol/L (3.5-5.1); SODIUM SERUM 136 mmol/L (136-145); UREA NITROGEN, BLOOD 8 mg/dL (7-18)
[2025-01-05 05:23] LABS: AMPHET/METH SCREEN,URINE NEGATIVE (NEGATIVE); BARBITURATE SCREEN, URINE NEGATIVE (NEGATIVE); BENZODIAZEPINES SCREEN,URINE NEGATIVE (NEGATIVE); CANNABINOID SCREEN,URINE POSITIVE (NEGATIVE); COCAINE SCREEN,URINE NEGATIVE (NEGATIVE); METHADONE SCREEN, URINE NEGATIVE (NEGATIVE); OPIATE SCREEN,URINE NEGATIVE (NEGATIVE); PHENCYCLIDINE SCREEN,URINE NEGATIVE (NEGATIVE)
[2025-01-05 05:25] LABS: ALCOHOL, URINE DRUG SCREEN NEGATIVE (NEGATIVE)
[2025-01-05 05:31] LABS: SARS-COV2 (COVID) ANTIGEN,FIA Negative (Negative)
== END 2025-01-05 10:30 | disposition home or self-care (01) ==
LOC: EMS 04:31
DX: Z00.8 Encounter for other general examination (principal); F20.9 Schizophrenia, unspecified; F31.89 Other bipolar disorder; F19.10 Other psychoactive substance abuse, uncomplicated; Z88.8 Allergy status to other drugs, medicaments and biological substances; Z79.899 Other long term (current) drug therapy; Z20.822 Contact with and (suspected) exposure to COVID-19
CPT/HCPCS: 99283; 87426; 80048; 81003; 85025; 36415; 80307; G0480